=== PATIENT | female | born 1955 | race Caucasian/White ===

== ENCOUNTER 2017-01-30 18:39 | Emergency (ER) | payer OTHER ==
[~2017-01-30] VITALS: Ht 165.1 cm; Wt 95.1 kg
[~2017-01-30 18:39] MED LIST: EPIP0.3I IM; LOVA40TA PO; ULTR50TA PO
[2017-01-30 18:53] VITALS: BP 136/75; PULSE 117; RESP 16; TEMP 97.8
[2017-01-30] MEDS ORDERED: LOVA40TA PO (19:22)
[2017-01-30] MEDS ORDERED: METF500T PO (19:24)
[2017-01-30] MEDS ORDERED: ASPI81CH7 CHEW (19:24)
[2017-01-30] MEDS ORDERED: TRAM50TA PO (19:24)
--- NOTE | 2017-01-30 19:28 | PD ---
HPI Chief Complaint: GI Complaint Time Seen by Provider: 19:14 Travel History International Travel<30 days: No Contact w/Intl Traveler<30days: No Traveled to known affect area: No History of Present Illness HPI 61yo F with PMH of HTN, HLD, chronic pain on tramadol presents to the ED with c/ o lower abdominal pain that started about 4 or 5am today. Associated with bloody diarrhea, red in color. States it is pink when she wipes. Also had nausea and vomiting and said after vomiting for a while, had bright red blood in the vomit. Abdominal pain is bilateral lower, intermittent. Nothing makes it better or worst. Denies any fever, chest pain, sob, dysuria, hematuria, focal weakness or numbness. Denies history of ulcers, colonoscopy, alcohol abuse or history of GI bleed. States she may have hemorrhoid. PFSH Past Medical History High Cholesterol: Yes Diabetes: Yes Patient Takes Glucophage: No Medical other: Yes (CHRONIC PAIN) Tetanus Vaccination: Unknown Influenza Vaccination: Yes ?: Not Past Surgical History Gynecologic Surgery: Yes (HYST) Hysterectomy: Yes Social History Alcohol Use: Yes (OCCASSIONALLY) Tobacco Use: No Substance Use: No Allergies-Medications (Allergen,Severity, Reaction): Coded Allergies: No Known Allergies (Unverified , 01/30/17) Reported Meds & Prescriptions Reported Meds & Active Scripts Active Metronidazole 500 Mg Tab 500 Mg PO TID 10 Days Ciprofloxacin (Ciprofloxacin HCl) 500 Mg Tab 500 Mg PO BID 10 Days Reported Aspirin Children's (Aspirin) 81 Mg Chew 81 Mg CHEW DAILY Tramadol (Tramadol HCl) 50 Mg Tab 50 Mg PO BID PRN Metformin (Metformin HCl) 500 Mg Tab 500 Mg PO BIDPC Lovastatin 40 Mg Tab 40 Mg PO HS Review of Systems Except as stated in HPI: all other systems reviewed are Neg Physical Exam Narrative GENERAL: 61yo F in mild distress. SKIN: Focused skin assessment warm/dry. HEAD: Atraumatic. Normocephalic. EYES: Pupils equal and round. No scleral icterus. No injection or drainage. CARDIOVASCULAR: Regular rate and rhythm. No murmur appreciated. RESPIRATORY: No accessory muscle use. Clear to auscultation. Breath sounds equal bilaterally. GASTROINTESTINAL: Abdomen soft, +TTP LLQ, suprapubic region. No rebound tenderness or guarding. MUSCULOSKELETAL: No obvious deformities. No clubbing. No cyanosis. No edema. NEUROLOGICAL: Awake and alert. No obvious cranial nerve deficits. Motor grossly within normal limits. Normal speech. PSYCHIATRIC: Appropriate mood and affect; insight and judgment normal. Data Data Last Documented VS Vital Signs Date Time Temp Pulse Resp B/P (MAP) Pulse Ox O2 Delivery O2 Flow Rate FiO2 01/30/17 21:26 98.2 86 14 177/73 (107) 98 Room Air Orders Orders Complete Blood Count With Diff (01/30/17:) Comprehensive Metabolic Panel (01/30/17:) Lipase (01/30/17:) Prothrombin Time / Inr (Pt) (01/30/17:) Act Partial Throm Time (Ptt) (01/30/17:) Urinalysis - C+S If Indicated (01/30/17:) Ct Abd/Pel W Iv Contrast(Rout) (01/30/17:21) Iv Access Insert/Monitor (01/30/17:) Ecg Monitoring (01/30/17:) Oximetry (01/30/17:21) Morphine Inj (Morphine Inj) (01/30/17 19:30) Ondansetron Inj (Zofran Inj) (01/30/17 19:30) Sodium Chloride 0.9% Flush (Ns Flush) (01/30/17 19:30) Electrocardiogram (01/30/17:21) Type And Screen (01/30/17:21) Sodium Chloride 0.9... W/Pantoprazole In (01/30/17 19:47) Sodium Chloride 0.9... W/Pantoprazole In (01/30/17 19:47) Iohexol 350 Inj (Omnipaque 350 Inj) (01/30/17 20:35) Ciprofloxacin (Cipro) (01/30/17 22:15) Metronidazole (Flagyl) (01/30/17 22:15) Ed Discharge Order (01/30/17 22:07) Labs Laboratory Tests Test 01/30/17 19:40 White Blood Count 12.6 TH/MM3 Red Blood Count 5.49 MIL/MM3 Hemoglobin 15.1 GM/DL Hematocrit 45.5 % Mean Corpuscular Volume 82.8 FL Mean Corpuscular Hemoglobin 27.5 PG Mean Corpuscular Hemoglobin Concent 33.2 % Red Cell Distribution Width 13.5 % Platelet Count 344 TH/MM3 Mean Platelet Volume 8.9 FL Neutrophils (%) (Auto) 78.3 % Lymphocytes (%) (Auto) 13.0 % Monocytes (%) (Auto) 5.5 % Eosinophils (%) (Auto) 0.1 % Basophils (%) (Auto) 3.1 % Neutrophils # (Auto) 9.9 TH/MM3 Lymphocytes # (Auto) 1.6 TH/MM3 Monocytes # (Auto) 0.7 TH/MM3 Eosinophils # (Auto) 0.0 TH/MM3 Basophils # (Auto) 0.4 TH/MM3 CBC Comment DIFF FINAL Differential Comment Prothrombin Time 11.1 SEC Prothromb Time International Ratio 1.0 RATIO Activated Partial Thromboplast Time 25.4 SEC Urine Color YELLOW Urine Turbidity CLEAR Urine pH 7.0 Urine Specific Ada 1.026 Urine Protein 30 mg/dL Urine Glucose (UA) NEG mg/dL Urine Ketones 15 mg/dL Urine Occult Blood LARGE Urine Nitrite NEG Urine Bilirubin NEG Urine Leukocyte Esterase NEG Urine RBC 4-9 /hpf Urine Squamous Epithelial Cells 0-5 /hpf Microscopic Urinalysis Comment CULT NOT INDICATED Blood Urea Nitrogen 20 MG/DL Creatinine 0.88 MG/DL Random Glucose 134 MG/DL Total Protein 7.5 GM/DL Albumin 3.5 GM/DL Calcium Level 9.4 MG/DL Alkaline Phosphatase 100 U/L Aspartate Amino Transf (AST/SGOT) 22 U/L Alanine Aminotransferase (ALT/SGPT) 47 U/L Total Bilirubin 0.4 MG/DL Sodium Level 137 MEQ/L Potassium Level 3.5 MEQ/L Chloride Level 102 MEQ/L Carbon Dioxide Level 26.3 MEQ/L Anion Gap 9 MEQ/L Estimat Glomerular Filtration Rate 65 ML/MIN Lipase 415 U/L [facility] Medical Decision Making Medical Screen Exam Complete: Yes Emergency Medical Condition: Yes Interpretation(s) EKG: NSR at 86bpm. LAD. TWI III, aVF. Differential Diagnosis Diverticulitis vs. AV malformation vs. hemorrhoids vs. colonic polyps vs. yolis veras tear Narrative Course 61yo F with c/o lower abdominal pain, blood in diarrhea and vomiting. Pt is well appearing, initial documented HR is 117bpm but repeat HR is 90bpm. BP normal. Labs reviewed, mild leukocytosis. H/H 15.1/45.5. BUN mildly elevated at 20. Lipase mildly elevated at 415. CMP unremarkable. UA showed large blood. No leukocyte. Pt given protonix, morphine and zofran. Pt reevaluated at bedside and pain and nausea resolved. Abdomen soft, NT/ND. Pt tolerating PO. CT a/p showed thickening of the descending colon with mild surrounding induration representing area of colitis. Could be diverticulitis. 1.9cm right adrenal gland lesion. Informed pt to follow up as outpatient. Will try outpatient treatment first. First dose of antibiotics given here. Return precautions given. HemaPrompt Point of Care Internal Pos. & Neg. Controls: Passed Fecal Specimen Occult Blood: Positive Diagnosis Primary Impression: Diverticulitis Qualified Codes: K57.33 - Diverticulitis of large intestine without perforation or abscess with bleeding Referrals: Viridiana Sue MD call for appointment Patient Instructions: General Instructions Departure Forms: Tests/Procedures Additional Instructions: Please follow up with your primary care physician in 3-7 days. You still need to have an outpatient colonoscopy and possibly endoscopy. Please follow up with gastroenterology as outpatient as well. Return to the ED if symptoms worsen. Med/Other Pt SpecificInfo: Prescription(s) given Scripts Metronidazole (Metronidazole) 500 Mg Tab 500 MG PO TID for Infection for 10 Days, TAB 0 Refills Prov: Brittny Emery DO 01/30/17 Ciprofloxacin (Ciprofloxacin) 500 Mg Tab 500 MG PO BID for Infection for 10 Days, #20 TAB 0 Refills Prov: Brittny Emery DO 01/30/17 Disposition: 01 DISCHARGE HOME Condition: Stable Brittny Emery DO Jan 30, 2017 19:28
[2017-01-30] MEDS ORDERED: MORPHINE SULFATE 4 MG/ML INJ IV PUSH ONE (19:30)
[2017-01-30] MEDS ORDERED: ONDANSETRON HCL 4 MG/2 ML VIAL IVP ONE (19:30)
[2017-01-30] MEDS ORDERED: SODIUM CHLORIDE 0.9% FLUSH 10 ML FLUSH IV FLUSH PRN (19:30)
[2017-01-30] MEDS ORDERED: PANTOPRAZOLE INJ 80 MG in SODIUM CHLORIDE 0.9% INJ 35 ML IV ONE (19:47)
[2017-01-30] MEDS ORDERED: PANTOPRAZOLE INJ 80 MG in SODIUM CHLORIDE 0.9% INJ 100 ML IV SCH (19:47)
[2017-01-30 19:58] LABS: BLOOD, URINE LARGE (NEG); GLUCOSE,URINE NEG (NEG); KETONE, URINE 15 mg/dL (NEG); NITRITE,URINE NEG (NEG)
[2017-01-30 19:59] LABS: AUTOMATED NEUTROPHIL # 9.9 TH/MM3 (1.8-7.7); BASOPHIL # 0.4 TH/MM3 (0-0.2); BASOPHIL % 3.1 % (0.0-2.0); EOSINOPHIL % 0.1 % (0.0-4.0); HEMATOCRIT 45.5 % (35.0-46.0); LYMPHOCYTE # 1.6 TH/MM3 (1.0-4.8); MEAN CELL VOLUME 82.8 FL (80.0-100.0); MEAN CORPUSCULAR HEMOGLOBIN 27.5 PG (27.0-34.0); MEAN CORPUSCULAR HGB CONC 33.2 % (32.0-36.0); MONO % 5.5 % (0.0-8.0); NEUT % 78.3 % (16.0-70.0); PLATELET COUNT 344 TH/MM3 (150-450); RED BLOOD COUNT 5.49 MIL/MM3 (4.00-5.30); RED CELL DISTRIBUTION WIDTH 13.5 % (11.6-17.2); WHITE BLOOD COUNT 12.6 TH/MM3 (4.0-11.0)
[2017-01-30 20:01] LABS: URINE COLOR YELLOW (YELLW/STRAW)
[2017-01-30 20:03] LABS: COMMENT (UR) CULT NOT INDICATED; CULTURE IF INDICATED CULT NOT INDICATED; SQUAMOUS EPITHELIAL CELL URINE 0-5 /hpf (0-5)
[2017-01-30 20:04] LABS: HEMO FLAGS DIFF FINAL
[2017-01-30 20:08] LABS: CHLORIDE 102 MEQ/L (98-107); POTASSIUM 3.5 MEQ/L (3.5-5.1); SODIUM (NA) 137 MEQ/L (136-145)
[2017-01-30 20:11] LABS: APTT (PATIENT) 25.4 SEC (24.3-30.1); PROTHROMBIN TIME - PATIENT 11.1 SEC (9.8-11.6)
[2017-01-30 20:12] LABS: ANION GAP 9 MEQ/L (5-15); BICARBONATE 26.3 MEQ/L (21.0-32.0); BLOOD UREA NITROGEN 20 MG/DL (7-18)
[2017-01-30 20:14] LABS: ALT (GPT) 47 U/L (10-53); AST (GOT) 22 U/L (15-37)
[2017-01-30 20:15] LABS: GLOMERULAR FILTRATION RATE 65 ML/MIN (>89)
[2017-01-30 20:16] LABS: TOTAL BILIRUBIN ADULT 0.4 MG/DL (0.2-1.0)
[2017-01-30 20:17] LABS: ALKALINE PHOSPHATASE 100 U/L (45-117)
[2017-01-30] MEDS ORDERED: IOHEXOL 350 MG/ML 10 ML VIAL (for RAD DIAG) IVCONTRAST ONE (20:35)
--- NOTE | 2017-01-30 21:14 | EKG ---
Date Performed: 01/30/2017 Time Performed: 19:31:38 PTAGE: 61 years EKG: Sinus rhythm WITH SINUS ARRHYTHMIA BORDERLINE LEFT AXIS DEVIATION LOW QRS VOLTAGE IN PRECORDIAL LEADS VOLTAGE CRI TERIA FOR LVH NONSPECIFIC ST & T-WAVE ABNORMALITY ABNORMAL ECG NO PREVIOUS TRACING DOCTOR: See Ordonez Interpretating Date/Time 01/30/2017 21:13:10
[2017-01-30 21:26] VITALS: BP 177/73; PULSE 86; RESP 14; TEMP 98.2; O2SAT 98
--- NOTE | 2017-01-30 21:42 | RADRPT ---
EXAM DATE/TIME: 01/30/2017 20:32 [facility] COMPARISON: No previous studies available for comparison. INDICATIONS : Lower abdominal pain with vomiting and loose bloody stools. IV CONTRAST: 89 cc Omnipaque 350 (iohexol) IV ORAL CONTRAST: No oral contrast ingested. RADIATION DOSE: 18.09 CTDIvol (mGy) MEDICAL HISTORY : Diabetes mellitus type 2. SURGICAL HISTORY : Hysterectomy. ENCOUNTER: Initial ACUITY: 1 day PAIN SCALE: 4/10 LOCATION: Lower quadrant abdomen TECHNIQUE: Volumetric scanning of the abdomen and pelvis was performed. Using automated exposure control and adjustment of the mA and/or kV according to patient size, radiation dose was kept as low as reasonably achievable to obtain optimal diagnostic quality images. DICOM format image data is av ailable electronically for review and comparison. FINDINGS: There is thickening of the descending colon. There is some mild induration of the surro unding fat. There are scattered diverticula present. No abscess is seen. There are other diverticu la seen throughout the rest of the colon especially in the sigmoid region without significant inflamm atory change. There is a mild hiatal hernia. There is decreased density seen throughout the liver consistent with hepatic steatosis. No focal hepatic lesions are seen. The spleen, pancreas and left adrenal gland a re normal. The patient has a 1.9 cm right adrenal lesion. There are scattered calcifications seen thr oughout the arterial system without an aneurysm. Significant adenopathy is not appreciated. The qasim endix appears normal. The pelvic structures appear grossly normal. The patient appears to be status post hysterectomy. A pelvic mass is not seen. There is some minimal suspected atelectasis at the satish ng bases. There is some degenerative change at the lower lumbar spine. CONCLUSION: 1. Thickening of the descending colon with mild surrounding induration representing an area of coliti s. This could be related to diverticulitis given the surrounding diverticula. 2. Hepatic steatosis. 3. 1.9 cm right adrenal gland lesion. This is nonspecific on this contrast enhanced CT examination. Statistically it likely represents an adenoma. 4. Mild hiatal hernia. Kade Davies MD on January 30, 2017 at 21:26 Board Certified Radiologist. This report was verified electronically.
[2017-01-30] MEDS ORDERED: CIPR500T2 PO (22:06)
[2017-01-30] MEDS ORDERED: METR500T10 PO (22:06)
[2017-01-30] MEDS ORDERED: metroNIDAZOLE 500 MG TAB PO ONE (22:15)
[2017-01-30] MEDS ORDERED: CIPROFLOXACIN 500 MG TAB PO ONE (22:15)
== END 2017-01-30 22:26 | disposition home or self-care (01) ==
LOC: PHED 18:39
DX: K57.32 Diverticulitis of large intestine without perforation or abscess without bleeding (principal); R11.10 Vomiting, unspecified; R94.31 Abnormal electrocardiogram [ECG] [EKG]; G89.29 Other chronic pain; I10 Essential (primary) hypertension; E11.9 Type 2 diabetes mellitus without complications; E78.00 Pure hypercholesterolemia, unspecified
CPT/HCPCS: 74177; 80053; 81001; 83690; 85025; 85610; 85730; 86850; 86900; 86901; 93005; 96365; 96375; 99285; C9113; J2270; J2405; Q9967